=== PATIENT | male | born 1950 | race Caucasian/White ===

== ENCOUNTER 2024-03-30 06:22 | Emergency (ER) | payer MEDICARE, OTHER, SELFPAY ==
[2024-03-30 06:27] VITALS: BP 157/90
--- NOTE | 2024-03-30 06:36 | ED.GENMED ---
History of Present Illness
General
Chief Complaint: Fall
Time Seen by Provider: 03/30/24 06:35
History of Present Illness
History of Present Illness:
HPI: Patient tripped on a rug last evening striking head/face. He extended his upper extremities and then his face struck the coffee table. There was no loss of consciousness. He is primarily concerned of the discomfort that he has distal to both
elbows. He has no neck pain. He reports of upper back 'soreness'. He does not take antiplatelets or anticoagulation. He did take Tylenol around 2 AM.
EXAM:
GENERAL: Well appearing in no significant distress
CERVICAL SPINE: No midline c-spine tenderness with excellent AROM
HEAD: Small abrasion contusion noted to the forehead, very superficial laceration over the nasal bone with no bony tenderness
CHEST: No chest wall tenderness, normal heart sounds
LUNGS: Equal lung sounds, no respiratory distress
ABDOMEN: No abdominal tenderness, no peritoneal signs
EXTREMITIES: Some decreased active range of motion at the fingers, hands and wrist bilaterally. Good active range of motion at the elbows. Excellent active range of motion of the lower extremities, abrasion noted to the right forearm anteriorly.
No significant bony tenderness.
NEURO: Excellent strength all extremities, appropriate mental status, normal speech/language
TIME OF INITIAL ENCOUNTER: 6:45 AM
NUMBER AND COMPLEXITY OF PROBLEMS ADDRESSED AT THE ENCOUNTER
� Chronic conditions affecting care: High blood pressure, GERD, vasculitis
� Acute Exacerbation and/or Progression of Chronic Illness: This is an acute problem
� Differential Diagnosis includes: Intracranial hemorrhage, minor head injury, facial laceration
AMOUNT AND/OR COMPLEXITY OF DATA TO BE REVIEWED AND ANALYZED
� I performed an independent evaluation of and my interpretation is:
EKG:
CT: CT personally viewed�no intracranial abnormality
X-rays: I personally viewed x-rays of the forearms and hands and nasal bones�all negative.
Laboratory Studies:
Other:
� Review of other/old records: No old records available for [facility] in [facility]
� Clinical information was obtained by an independent historian: Spoke to at bedside
� Prescriptions/Medications Considered but not given:
� Further testing considered but not performed:
RISK OF COMPLICATIONS AND/OR MORBIDITY OR MORTALITY OF PATIENT MANAGEMENT
� Social determinants of health affecting care: Lives at home
� Discussion with other providers:
� Escalation of care including admission/observation vs risk of discharge considered: Given patient's age, CT imaging obtained of the brain. X-rays also obtained of the distal upper extremities. Tylenol given. On reassessment
at 9:30 AM, the patient reports some ongoing pain in the upper extremities. Suspect more of a soft tissue etiology.
Phy Exam
Physical Exam
Physical Exam:
See HPI
Course
Orders/Labs/Results
Orders:
Orders
03/30/24 06:50
Acetaminophen [Tylenol] 1,000 mg PO NOW STA
CR Forearm - Left 2 View Urgent
Comment:
Reason For Exam: trauma
CR Forearm - Right 2 View Urgent
Comment:
Reason For Exam: trauma
CR Hand - Left Min 3 Views Urgent
Comment:
Reason For Exam: trauma
CR Hand - Right Min 3 Views Urgent
Comment:
Reason For Exam: trauma
03/30/24 06:51
CT Head W/o Iv Contrast Urgent
Comment:
Reason For Exam: head trauma, please incl nasal bones
03/30/24 06:55
CR Nasal Bones Comp Min 3 View Urgent
Comment:
Reason For Exam: trauma
Vital Signs
Initial and Last Documented VS:
Initial Vital Signs
Temp Pulse Resp BP Pulse Ox
98.7 F 100 20 157/90 96
03/30/24 06:27 03/30/24 06:27 03/30/24 06:27 03/30/24 06:27 03/30/24 06:27
Last Documented Vital Signs
Temp Pulse Resp BP Pulse Ox
98.7 F 86 16 147/87 96
03/30/24 06:27 03/30/24 08:05 03/30/24 08:05 03/30/24 08:04 03/30/24 08:04
*Critical Care Note
Total Time (30-74mins, 75-104mins- exclusive of procedures): Not Applicable
ED Attending Note
-
Portions of this chart may have been created with voice recognition software.� Occasional wrong word or��sound alike� substitutions may have occurred due to the inherent limitations of voice recognition software.
Discharge Plan
Departure
Patient Disposition: Home (Routine Discharge)
Date of Disposition: 03/30/24
Time of Disposition: 09:22
Patient with high blood pressure during this ER visit?: Yes
Discharge Problem:
Muscle strain
Instructions: Contusion (DC), Muscle Strain ED, BLOOD PRESSURE
Referrals:
PRIVATE,PHYSICIAN [Family Provider] -
Activity Restrictions/Additional Instructions:
X-rays of the forearms and hands on both sides are negative. X-ray of the nasal bone is negative. CAT scan of the brain shows no bleeding. Return here if worse. I recommend Tylenol and/or Motrin for pain.
Interventions
Interventions:
*Risk Screen - Suicide Last Done: 03/30/24 06:27
*General Assessment Last Done: 03/30/24 06:27
*Neglect/Abuse Screening Last Done: 03/30/24 06:27
ED- Fall Risk Assessment Last Done: 03/30/24 06:27
*ED COVID-19 Vaccine History Last Done: 03/30/24 06:27
ED-Musculoskeletal Assessment Last Done: 03/30/24 07:19
ED- Neurological Assessment Last Done: 03/30/24 07:19
ED-Skin Assessment Last Done: 03/30/24 07:19
Discharge Date and Time
Print Language: THAI
[2024-03-30] MEDS: TYLENOL 1000 MG PO (07:12)
[2024-03-30 08:04] VITALS: BP 147/87
[2024-03-30 09:37] VITALS: BP 137/87
== END 2024-03-30 09:38 | disposition home or self-care (01) ==
LOC: EMR 06:22
PROVIDERS: EMERGENCY PHYSICIAN Emergency Medicine
DX: S46.912A Strain of unspecified muscle, fascia and tendon at shoulder and upper arm level, left arm, initial encounter (principal); S46.911A Strain of unspecified muscle, fascia and tendon at shoulder and upper arm level, right arm, initial encounter; S01.21XA Laceration without foreign body of nose, initial encounter; W18.09XA Striking against other object with subsequent fall, initial encounter
CPT/HCPCS: 99284; 70160; 70450; 73090; 73130